=== PATIENT | female | born 1930 | race Caucasian/White ===

== ENCOUNTER 2018-02-25 19:34 | Emergency (ER) | payer MEDICARE, OTHER ==
[~2018-02-25] VITALS: Ht 170.2 cm; Wt 56.0 kg
[~2018-02-25 19:34] MED LIST: ASPI-496 PO; LEVO50TA5 PO; OMEG500C PO
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
[2018-02-25 20:39] VITALS: BP 131/61
--- NOTE | 2018-02-25 20:39 | NUR ---
pt resting calmly, daughter remains at bedside, call light within reach, monitors in place, denies needs at this time.
== END 2018-02-25 21:28 | disposition home or self-care (01) ==
LOC: ED 21:13
DX: S40.012A Contusion of left shoulder, initial encounter (principal); Z87.891 Personal history of nicotine dependence; W01.0XXA Fall on same level from slipping, tripping and stumbling without subsequent striking against object, initial encounter; Y93.89 Activity, other specified; Y92.129 Unspecified place in nursing home as the place of occurrence of the external cause; Y99.8 Other external cause status
CPT/HCPCS: 99283